=== PATIENT | male | born 1940 | race Caucasian/White ===

== ENCOUNTER → 2016-10-24 | Outpatient (CLI) | payer MEDICARE ==
--- NOTE | 2016-10-24 12:55 | US ---
EXAMINATION TYPE: US venous doppler duplex LE LT DATE OF EXAM: 10/24/2016 12:38 PM COMPARISON: NONE CLINICAL HISTORY: M79.672 PAIN LT FOOT,M21.42 FLAT FOOT LT,M79.671 PAIN RT DYLON. Pt states left leg pa in and swelling x 1 week SIDE PERFORMED: Left TECHNIQUE: The lower extremity deep venous system is examined utilizing real time linear array sonog krystyna with graded compression, doppler sonography and color-flow sonography. VESSELS IMAGED: External Iliac Vein (EIV) Common Femoral Vein Deep Femoral Vein Greater Saphenous Vein * Femoral Vein Popliteal Vein Small Saphenous Vein * Proximal Calf Veins (* superficial vessels) Left Leg: Negative for DVT, Rouleaux flow visualized entire left leg, enlarged lymph nodes within le ft groin Message left on answering service at Dr's office at time of exam Grayscale, color doppler, spectral doppler imaging performed of the deep veins of the left lower extr emity. There is normal flow, compressibility, vascular waveforms of the left lower extremity. Mild t o moderate diffuse subcutaneous edema is present. Somewhat suspicious enlarged left groin lymph nodes marked by technologist with loss of normal fatty hilum. IMPRESSION: No ultrasound evidence for acute DVT in left lower extremity. Diffuse subcutaneous edema is present. Abnormal left groin lymph node, consider infectious or inflammatory etiology. Consider sh ort-term follow-up ultrasound as if this persists further investigation would be warranted.
== END | disposition home or self-care (01) ==
LOC: RADUSWWP 12:14
PROVIDERS: ATTEND Orthopaedic Surgery
DX: L08.89 Other specified local infections of the skin and subcutaneous tissue (principal); R60.0 Localized edema; R59.0 Localized enlarged lymph nodes; M21.41 Flat foot [pes planus] (acquired), right foot; M21.42 Flat foot [pes planus] (acquired), left foot; M79.671 Pain in right foot